=== PATIENT | female | born 1990 | race Caucasian/White ===

== ENCOUNTER 2019-07-17 08:44 | Emergency (ER) | payer OTHER ==
[~2019-07-17] VITALS: Ht 160 cm; Wt 57.3 kg
[~2019-07-17 08:44] MED LIST: BUPR-187 PO; FAMO-96 PO; ONDA4TAB8 PO; SERT100T PO
[2019-07-17 08:48] VITALS: Ht 160 cm; Wt 57.3 kg
[2019-07-17] MEDS ORDERED: SOD CHLORIDE 0.9% 1,000 ML IV STA (08:55)
[2019-07-17] MEDS ORDERED: LORAZEPAM 2 MG INJ IV ONE (09:00)
[2019-07-17] MEDS ORDERED: DIPHENHYDRAMINE 50 MG INJ IV ONE (09:00)
[2019-07-17 11:48] VITALS: BP 118/60; PULSE 67; RESP 20
== END 2019-07-17 11:52 | disposition home or self-care (01) ==
LOC: E/R 08:44
DX: R11.2 Nausea with vomiting, unspecified (principal); F17.210 Nicotine dependence, cigarettes, uncomplicated
CPT/HCPCS: 36415; 80053; 80307; 81025; 83690; 85025; 96374; 96375; J1200; J2060; J7030; Z7502